=== PATIENT | female | born 1945 | race Caucasian/White ===

== ENCOUNTER 2017-01-29 10:54 | Inpatient (IN) | payer OTHER ==
[~2017-01-29] VITALS: Ht 154.9 cm; Wt 102.2 kg
[2017-01-29 11:23] LABS: BASO % 0.4 % (0.0-1.0); EOS # 0.2 10*3/uL (0.0-0.4); EOS % 2.6 % (1.0-4.0); HEMATOCRIT 37.4 % (37.0-47.0); LYMPH # 1.5 10*3/uL (1.3-4.4); LYMPH % 22.2 % (27.0-41.0); MEAN CELL VOLUME 84.8 fl (81.0-99.0); MEAN CORPUSCULAR HGB 27.2 pg (27.0-31.0); MEAN CORPUSCULAR HGB CONC 32.1 g/dl (33.0-37.0); MEAN PLATELET VOLUME 10.3 fl (9.6-12.3); MONO # 0.5 10*3/uL (0.1-1.0); MONO % 7.4 % (3.0-9.0); NEUT # 4.5 10*3/uL (2.3-7.9); NEUT % 66.8 % (47.0-73.0); PLATELET COUNT AUTOMATED 131 10*3/uL (130-400); RED BLOOD COUNT 4.41 10*6/uL (4.10-5.10); RED CELL DISTRI WIDTH 14.5 % (0-14.5); WHITE BLOOD COUNT 6.8 10*3/uL (4.8-10.8)
[2017-01-29 11:26] VITALS: BP 122/92
[2017-01-29 11:31] LABS: ACT PARTIAL THROMBO TIME 22.4 SECONDS (20.8-31.5)
[2017-01-29 11:41] LABS: ALBUMIN 3.7 gm/dl (3.1-4.5); ALKALINE PHOSPHATASE 86 U/L (45-117); BUN 17 mg/dl (7-24); CHLORIDE 103 mmol/L (98-107); CREATININE 0.81 mg/dL (0.55-1.02); MAGNESIUM 2.3 mg/dL (1.5-2.1); POTASSIUM 5.2 mmol/L (3.5-5.1); SGOT/AST 14 IU/L (3-35); SGPT/ALT 15 U/L (12-78); SODIUM 142 mmol/L (136-145); TOTAL PROTEIN 7.5 gm/dL (6.4-8.2)
[2017-01-29 11:44] LABS: TROPONIN I < 0.015 ng/ml (<0.045)
--- NOTE | 2017-01-29 11:57 | NUR ---
REQUESTS NOT TO BE ADMITTED TO ROOM 512.
--- NOTE | 2017-01-29 14:10 | NUR ---
CALLED NURSE REPORT TO NNEKA
[2017-01-29 15:08] VITALS: BP 185/43
[2017-01-29 16:00] VITALS: BP 167/70
[2017-01-29 16:15] VITALS: BP 167/70
--- NOTE | 2017-01-29 16:15 | NUR ---
A 71YO FEMALE, admitted to , under the services of DWAIN Adam DO with a diagnosis of CHF/DYSPNEA. Chief complaint is SHORTNESS OF BREATH, WORSENING OVER PAST FEW DAYS. Patient arrived via stretcher from ER. Monitor applied. Initial assessment completed. Vital signs taken and recorded. DWAIN ADAM DO notified of admission to the unit. Orders received. See assessment for past medical history, medications and allergies. Patient and/or family oriented to unit. [facility] visitation policy reviewed. Clothing/patient valuable form completed. LILIA CHANG
[2017-01-29] MEDS ORDERED: COREG25 MG PO (16:52)
[2017-01-29] MEDS ORDERED: NEURONTIN300 MG PO (16:53)
[2017-01-29] MEDS ORDERED: VITAMIN D31000 UNI1 PO (16:53)
[2017-01-29] MEDS ORDERED: ASPIRIN81 M1 PO (16:54)
[2017-01-29] MEDS ORDERED: BACTROBAN CREAM15 GM T (16:54)
[2017-01-29] MEDS ORDERED: XTAMPZA ER9 MG PO (16:55)
--- NOTE | 2017-01-29 16:55 | NUR ---
MED REC UPDATED/CORRECTED USING INFORMATION PROVIDED BY PATIENT AND DAUGHTER, WHICH COINCIDES WITH CLAIMS HISTORY, EXCEPT FOR VITAMIN D AND ASPIRIN, WHICH ARE OVER THE COUNTER BUT VERIFIED BY THE PATIENT.
--- NOTE | 2017-01-29 17:00 | NUR ---
DR. CALIXTO'S ANSWERING SERVICWE NOTIFIED OF CONSULT RE: CHF.
--- NOTE | 2017-01-29 17:03 | NUR ---
DR. CALIXTO NOTIFIED OF CONSULT RE: CHF.
--- NOTE | 2017-01-29 19:30 | NUR ---
ASSUMED CARE OF PT AT THIS TIME, NO CONCERNS OR COMPLAINTS VOICED CALL LIGHT WITH IN REACH
[2017-01-29 20:00] VITALS: BP 153/48
--- NOTE | 2017-01-29 21:45 | NUR ---
PT REFUSED OXYCONTIN AT THIS TIME, STATES THAT IT MAKES HER FEEL LOOPY, MEDICATION RETURNED TO PYXSIS
--- NOTE | 2017-01-29 23:39 | NUR ---
PT C/O INCREASED ANXIETY, PT IS TEARFUL, AND REPORTS SOB POX WNL, CALLED PLACED TO AND NEW ORDERS RECEIVED
[2017-01-30] VITALS: BP 122/61
--- NOTE | 2017-01-30 01:00 | NUR ---
PT RESTING IN BED WITH EYES CLOSED RESPS EASY AND NONLABORED WITH NO S/S OF DISTRESS, ATIVAN PRN EFFECTIVE AT THIS TIME
[2017-01-30 05:51] LABS: BASO % 0.3 % (0.0-1.0); EOS # 0.2 10*3/uL (0.0-0.4); EOS % 2.6 % (1.0-4.0); HEMATOCRIT 35.3 % (37.0-47.0); HEMOGLOBIN 11.7 g/dl (12.0-16.0); LYMPH # 1.8 10*3/uL (1.3-4.4); LYMPH % 25.8 % (27.0-41.0); MEAN CELL VOLUME 82.9 fl (81.0-99.0); MEAN CORPUSCULAR HGB 27.5 pg (27.0-31.0); MEAN CORPUSCULAR HGB CONC 33.1 g/dl (33.0-37.0); MEAN PLATELET VOLUME 10.6 fl (9.6-12.3); MONO # 0.6 10*3/uL (0.1-1.0); NEUT # 4.3 10*3/uL (2.3-7.9); PLATELET COUNT AUTOMATED 140 10*3/uL (130-400); RED BLOOD COUNT 4.26 10*6/uL (4.10-5.10); RED CELL DISTRI WIDTH 14.2 % (0-14.5); WHITE BLOOD COUNT 6.9 10*3/uL (4.8-10.8)
[2017-01-30 06:02] LABS: BUN 22 mg/dl (7-24); CHLORIDE 99 mmol/L (98-107); CHOLESTEROL 192 mg/dL (<200); CREATININE 0.99 mg/dL (0.55-1.02); FREE T4 1.33 ng/dl (0.76-1.46); MAGNESIUM 2.3 mg/dL (1.5-2.1); SODIUM 139 mmol/L (136-145); TRIGLYCERIDES 154 mg/dl (<150); VLDL CHOLESTEROL 31 mg/dL (6-40)
[2017-01-30 06:09] LABS: HDL CHOLESTEROL 42 mg/dl (40-60); LDL CHOLESTEROL 119 mg/dL (9-159); THYROID STIM HORMONE (HS) 0.958 uIU/ml (0.358-4.75)
[2017-01-30 06:13] LABS: POTASSIUM 3.9 mmol/L (3.5-5.1)
[2017-01-30 08:00] VITALS: BP 154/92
[2017-01-30 08:02] LABS: VITAMIN D, 25-HYDROXY 31.3 ng/mL (30-100)
[2017-01-30 12:00] VITALS: BP 133/54
[2017-01-30] MEDS ORDERED: PRAVACHOL80 M1 PO (13:22)
--- NOTE | 2017-01-30 13:36 | NUR ---
[facility] CALLED, MED REC UP TO DATE.
--- NOTE | 2017-01-30 13:48 | NUR ---
PATIENT ID BY NAME AND . PATIENT AGREED TO PT EVALATION. PHYSICAL THERAPY EVALUATION COMPLETED. UPON FIRST ATTEMPT AT EVALUATION, PATIENT WAS COMPLETING GROOMING INDEPENDENTLY IN HER BATHROOM WITHOUT ASSISTIVE DEVICES AND REQUESTED THIS CLINICIAN RETURN SHORTLY. UPON SECOND ARRIVAL, PATIENT WAS READY FOR EVALUATION. PATIENT IS IN NAD, PLEASANT AND TALKATIVE. BED MOBILIYT WITH MODIFIED INDPENDENCE WITH LIGHT TOUCH OF BEDRAILS GETTING IN AND OUT OF BED. SIT TO/FROM STAND WITH LIGHT UE PUSH OF BEDRAIL. GAIT WITH 4 WHEELED WALKER X 175 FT IN HALLWAY: STEADY, NO LOB, MILD SOB, SUPERVISION. GAIT WITHOUT ASSISTIVE DEVICES X 75 FT IN HALLWAY: STEADY, NO LOB, MILD/MODERATE SOB PER PATIENT REPORT. B LE STRENGTH IS GOOD AND WFL. TUG SCORE 14. 5 SECONDS WITHOUT ASSISTIVE DEVICES. PHYSICAL THERAPY EVALUATION ONLY. LOW COMPLEXITY EVALUATION PERFORMED THIS DAY WITH LIMITED NUMBER OF DIAGNOSIS, AMOUNT OF MEDICAL HISTORY TO REVIEW AND BASED ON TODAY'S VISIT, LOW RISK FOR ACUTE COMPLICATIONS.
[2017-01-30 16:00] VITALS: BP 135/48
[2017-01-30 20:00] VITALS: BP 137/55
--- NOTE | 2017-01-30 20:00 | NUR ---
SITTING AT BEDSIDE VISITING WITH FAMILY. NO DISTRESS NOTED. RESPIRATIONS EASY. CALL LIGHT WITHIN REACH. NO VOICED COMPLAINTS
--- NOTE | 2017-01-30 21:00 | NUR ---
SITTING AT BEDSIDE, NO DISTRESS NOTED. RESPIRATIONS EASY. LUNGS DIMINISHED, CLEAR. PULSE OX 93% RA. +2 BLE EDEMA NOTED, TEDS REMOVED PER PATIENT REQUEST. DECLINED 2200 OXYCODONE. CALL LIGHT WITHIN REACH. NO VOICED COMPLAINTS
--- NOTE | 2017-01-30 22:00 | NUR ---
REQUESTED AND RECEIVED ATIVAN PO PER PRN ORDER TO ASSIST WITH SLEEP. CALL LIGHT WITHIN REACH. WILL MONITOR FOR EFFECTIVENESS
[2017-01-31] VITALS: BP 109/49
--- NOTE | 2017-01-31 | NUR ---
PATIENT REMAINS AWAKE. SITTING AT BEDSIDE WITH NO DISTRESS NOTED. RESPIRATIONS EASY. VSS. CALL LIGHT WITHIN REACH. NO VOICED COMPLAINTS
--- NOTE | 2017-01-31 06:00 | NUR ---
SLEPT THROUGHOUT NIGHT WITH NO DISTRESS NOTED. RESPIRATIONS EASY. CALL LIGHT WITHIN REACH. NO VOICED COMPLAINTS THIS SHIFT
[2017-01-31 06:23] LABS: BUN 31 mg/dl (7-24); CHLORIDE 101 mmol/L (98-107); CREATININE 1.08 mg/dL (0.55-1.02); SODIUM 139 mmol/L (136-145)
--- NOTE | 2017-01-31 07:30 | NUR ---
Patient resting quietly with no c/o discomfort. Respirations easy and regular. Vital signs stable. No overt distress. ALFONSO MORENO
[2017-01-31 08:00] VITALS: BP 110/70
--- NOTE | 2017-01-31 09:00 | NUR ---
DR SCHULTZ IN TO SEE PATIENT.
--- NOTE | 2017-01-31 10:46 | NUR ---
Crew Dispatcher in to talk to patient. Patient states lives at home with and grandson. There are 0 steps in the home. Physician: jami [facility]acy: [facility] Home health services: no Patient's level of ADLs: MINIMAL ASSIST Patient has working utilities: yes DME: yessica walker Follow-up physician's appointment after d/c: Siomara nurse director Does patient want to access PORTAL?: no Discharge plan home, denies any needs. denies VNA. MABLE PLATT
[2017-01-31 12:00] VITALS: BP 96/60
[2017-01-31 16:00] VITALS: BP 106/54
[2017-01-31 20:00] VITALS: BP 108/52
--- NOTE | 2017-01-31 21:00 | NUR ---
SITTING AT BEDSIDE VISITING WITH . RESPIRATIONS EASY. LUNGS DIMINISHED, CLEAR. PULSE OX 94% RA. +2 BLE EDEMA NOTED WITH TEDS OFF AT THIS TIME. RESPIRATIONS EASY. CALL LIGHT WITHIN REACH. NO VOICED COMPLAINTS
--- NOTE | 2017-01-31 22:30 | NUR ---
REFUSED 2200 OXYCODONE AND ZOCOR
--- NOTE | 2017-01-31 23:00 | NUR ---
REQUESTED AND RECEIVED ATIVAN PO PER PRN ORDER TO ASSIST WITH SLEEP. CALL LIGHT WITHIN REACH. WILL MONITOR FOR EFFECTIVENESS
[2017-02-01] VITALS: BP 122/62
--- NOTE | 2017-02-01 00:30 | NUR ---
REMAINS AWAKE. AMBULATING IN HALLWAY WITH NO DISTRESS NOTED. RESPIRATIONS EASY
--- NOTE | 2017-02-01 02:30 | NUR ---
SLEEPING. CALL LIGHT WITHIN REACH
--- NOTE | 2017-02-01 06:00 | NUR ---
SLEPT THROUGHOUT NIGHT WITH NO DISTRESS NOTED. RESPIRATIONS EASY. CALL LIGHT WITHIN REACH. NO VOICED COMPLAINTS THIS SHIFT
[2017-02-01 06:44] LABS: CREATININE 1.26 mg/dL (0.55-1.02); POTASSIUM 4.7 mmol/L (3.5-5.1)
[2017-02-01 08:00] VITALS: BP 140/80
[2017-02-01] MEDS ORDERED: LASIX40 MG PO (11:07)
[2017-02-01] MEDS ORDERED: LOSARTAN POTASS25 M1 PO (11:09)
[2017-02-01] MEDS ORDERED: ALDACTONE25 MG PO (11:09)
[2017-02-01] MEDS ORDERED: SIMVASTATIN40 MG PO (11:11)
--- NOTE | 2017-02-01 11:21 | NUR ---
Shift chart check completed.
[2017-02-01 12:00] VITALS: BP 92/58
--- NOTE | 2017-02-01 14:55 | NUR ---
Discharge instructions reviewed with patient/family. Patient receptive and verbalizes understanding. Follow-up care arranged. Written instructions given to patient/family. INSPECTOR PROCESS REMOVED. [place] REMOVED INTACT. FLU VACCINE WAS GIVEN ON ADMISSION. PATIENT DISCHARGED BY WHEELCHAIR IN CARE OF FAMILY. MEENAKSHI DELCID
== END 2017-02-01 14:55 | disposition home or self-care (01) | DRG 292 ==
LOC: ED 10:54 → EDHOLD 13:37 → 4E 13:37
PROVIDERS: Emergency Medicine; Internal Medicine; ADMIT Internal Medicine
DX: I11.0 Hypertensive heart disease with heart failure (principal); Z68.41 Body mass index [BMI] 40.0-44.9, adult; E87.5 Hyperkalemia; F33.9 Major depressive disorder, recurrent, unspecified; D64.9 Anemia, unspecified; I50.33 Acute on chronic diastolic (congestive) heart failure; E66.01 Morbid (severe) obesity due to excess calories; E78.00 Pure hypercholesterolemia, unspecified; Z96.651 Presence of right artificial knee joint; E83.41 Hypermagnesemia; G89.29 Other chronic pain; D72.810 Lymphocytopenia; R73.9 Hyperglycemia, unspecified; M47.22 Other spondylosis with radiculopathy, cervical region; Z79.82 Long term (current) use of aspirin; Z79.899 Other long term (current) drug therapy; Z90.710 Acquired absence of both cervix and uterus; Z87.891 Personal history of nicotine dependence; Z83.3 Family history of diabetes mellitus; Z82.49 Family history of ischemic heart disease and other diseases of the circulatory system

== ENCOUNTER → 2018-04-09 | Outpatient (CLI) | payer OTHER ==
[~2018-04-09] MED LIST: ALDACTONE25 MG PO; ASPIRIN81 M1 PO; BACTROBAN CREAM15 GM T; COREG25 MG PO; LASIX40 MG PO; LOSARTAN POTASS25 M1 PO; NEURONTIN300 MG PO; PRAVACHOL80 M1 PO; SIMVASTATIN40 MG PO; VITAMIN D31000 UNI1 PO; XTAMPZA ER9 MG PO
== END | disposition home or self-care (01) ==
LOC: RESCLI 04:21
DX: I13.0 Hypertensive heart and chronic kidney disease with heart failure and stage 1 through stage 4 chronic kidney disease, or unspecified chronic kidney disease (principal); N18.3 Chronic kidney disease, stage 3 (moderate); I50.32 Chronic diastolic (congestive) heart failure; E78.2 Mixed hyperlipidemia; E55.9 Vitamin D deficiency, unspecified; F33.0 Major depressive disorder, recurrent, mild; R05 Cough; I87.2 Venous insufficiency (chronic) (peripheral); M54.5 Low back pain; G89.29 Other chronic pain; R06.02 Shortness of breath; Z53.20 Procedure and treatment not carried out because of patient's decision for unspecified reasons; Z79.82 Long term (current) use of aspirin; Z79.899 Other long term (current) drug therapy; Z88.8 Allergy status to other drugs, medicaments and biological substances

== ENCOUNTER → 2018-07-24 | Outpatient (CLI) | payer OTHER | END | disposition home or self-care (01) | LOC: RESCLI 01:43 | DX: I13.0 Hypertensive heart and chronic kidney disease with heart failure and stage 1 through stage 4 chronic kidney disease, or unspecified chronic kidney disease (principal); N18.3 Chronic kidney disease, stage 3 (moderate); I50.32 Chronic diastolic (congestive) heart failure; E78.2 Mixed hyperlipidemia; E55.9 Vitamin D deficiency, unspecified; F33.0 Major depressive disorder, recurrent, mild; I87.2 Venous insufficiency (chronic) (peripheral); M54.5 Low back pain; G89.29 Other chronic pain; R06.02 Shortness of breath; R11.0 Nausea; J30.2 Other seasonal allergic rhinitis; F17.200 Nicotine dependence, unspecified, uncomplicated; Z53.20 Procedure and treatment not carried out because of patient's decision for unspecified reasons; Z79.899 Other long term (current) drug therapy; Z90.710 Acquired absence of both cervix and uterus ==

== ENCOUNTER → 2018-10-11 | Outpatient (CLI) | payer OTHER ==
[2018-10-11 15:18] LABS: BASO % 0.5 % (0.0-1.0); EOS # 0.2 10*3/uL (0.0-0.4); EOS % 3.8 % (1.0-4.0); HEMATOCRIT 33.9 % (37.0-47.0); HEMOGLOBIN 11.3 g/dl (12.0-16.0); LYMPH # 1.5 10*3/uL (1.3-4.4); LYMPH % 24.8 % (27.0-41.0); MEAN CELL VOLUME 86.5 fl (81.0-99.0); MEAN CORPUSCULAR HGB 28.8 pg (27.0-31.0); MEAN CORPUSCULAR HGB CONC 33.3 g/dl (33.0-37.0); MEAN PLATELET VOLUME 10.8 fl (9.6-12.3); MONO # 0.4 10*3/uL (0.1-1.0); NEUT # 3.9 10*3/uL (2.3-7.9); NEUT % 63.6 % (47.0-73.0); PLATELET COUNT AUTOMATED 136 10*3/uL (130-400); RED BLOOD COUNT 3.92 10*6/uL (4.10-5.10); RED CELL DISTRI WIDTH 14.1 % (0-14.5); WHITE BLOOD COUNT 6.1 10*3/uL (4.8-10.8)
[2018-10-11 15:26] LABS: CREATININE 1.19 mg/dL (0.55-1.02); POTASSIUM 4.6 mmol/L (3.5-5.1)
== END | disposition home or self-care (01) ==
LOC: RESCLI 01:22
PROVIDERS: Internal Medicine
DX: I13.0 Hypertensive heart and chronic kidney disease with heart failure and stage 1 through stage 4 chronic kidney disease, or unspecified chronic kidney disease (principal); I50.32 Chronic diastolic (congestive) heart failure; N18.3 Chronic kidney disease, stage 3 (moderate); M54.5 Low back pain; E55.9 Vitamin D deficiency, unspecified; F33.0 Major depressive disorder, recurrent, mild; R06.02 Shortness of breath; J30.2 Other seasonal allergic rhinitis; R11.0 Nausea; E78.2 Mixed hyperlipidemia; M19.90 Unspecified osteoarthritis, unspecified site; Z79.899 Other long term (current) drug therapy; Z88.8 Allergy status to other drugs, medicaments and biological substances

== ENCOUNTER → 2019-01-17 | Outpatient (CLI) | payer OTHER | END | disposition home or self-care (01) | LOC: RESCLI 02:39 | DX: Z12.11 Encounter for screening for malignant neoplasm of colon (principal); I13.0 Hypertensive heart and chronic kidney disease with heart failure and stage 1 through stage 4 chronic kidney disease, or unspecified chronic kidney disease; I50.32 Chronic diastolic (congestive) heart failure; N18.3 Chronic kidney disease, stage 3 (moderate); M54.5 Low back pain; E55.9 Vitamin D deficiency, unspecified; F33.0 Major depressive disorder, recurrent, mild; R06.02 Shortness of breath; J30.2 Other seasonal allergic rhinitis; R11.0 Nausea; E78.2 Mixed hyperlipidemia; M19.90 Unspecified osteoarthritis, unspecified site; B35.9 Dermatophytosis, unspecified; E66.01 Morbid (severe) obesity due to excess calories; R26.9 Unspecified abnormalities of gait and mobility; E78.5 Hyperlipidemia, unspecified; Z79.899 Other long term (current) drug therapy; Z79.82 Long term (current) use of aspirin; Z88.8 Allergy status to other drugs, medicaments and biological substances; Z90.710 Acquired absence of both cervix and uterus ==

== ENCOUNTER → 2019-02-04 | Outpatient (CLI) | payer OTHER | END | disposition home or self-care (01) | LOC: RESCLI 01:49 | DX: R26.2 Difficulty in walking, not elsewhere classified (principal); I13.0 Hypertensive heart and chronic kidney disease with heart failure and stage 1 through stage 4 chronic kidney disease, or unspecified chronic kidney disease; I50.32 Chronic diastolic (congestive) heart failure; N18.3 Chronic kidney disease, stage 3 (moderate); E55.9 Vitamin D deficiency, unspecified; F33.0 Major depressive disorder, recurrent, mild; R11.0 Nausea; E78.2 Mixed hyperlipidemia; J45.909 Unspecified asthma, uncomplicated; M19.90 Unspecified osteoarthritis, unspecified site; E78.5 Hyperlipidemia, unspecified; Z72.820 Sleep deprivation; Z79.899 Other long term (current) drug therapy ==

== ENCOUNTER → 2019-02-11 | Outpatient (CLI) | payer OTHER ==
--- NOTE | ~2019-02-11 | PF ---
[place], [place] PULMONARY FUNCTION TEST [facility]: [id number] UNIT #: [id number] ROOM: DOCTOR: KAREN LUNDBERG MD,COURTNEY BIRTHDATE: [birth year] DOS: 02/11/2019 PULMONARY FUNCTION TESTS ORDERED BY: Test was ordered by ____. HISTORY: The patient is a 73-year-old female, height of 62 inches, weight of 212 pounds, BMI 38.8. The patient reported symptoms of shortness of breath with exertion. Tobacco use reported 1 pack of cigarettes per day for 42 years that has been discontinued 14 years ago. SPIROMETRY: The FVC 1.57 liters, 62% predicted value, FEV1 1.20 liters, 61% predicted value with ratio of FEV1/FVC recorded as 78%. Partial improvement was noted in FEV1 or FVC, but did not meet the ATS criteria of improvement post-bronchodilators. Flow volume loop was noted. Finding suggestive of obstructive lung disease. LUNG VOLUME: Thoracic gas volume recorded 108%, residual volume 131%, total lung capacity of 96%. The patient's airway resistance and passive conductance were noted as normal. The patient's lung diffusion recorded 62%, mildly decreased without correction of carbon monoxide hemoglobin values. FINAL IMPRESSION: Current test was suggestive of possible consideration of mild obstructive lung disease for this patient. Clinical correlation would be advised with current pulmonary function tests. COURTNEY JONES MD CM:PFREPORT:PULMONARY FUNCTION TEST [id number] COURTNEY LUNDBERG MD
== END | disposition home or self-care (01) ==
LOC: CP 12:42
DX: J45.909 Unspecified asthma, uncomplicated (principal)

== ENCOUNTER → 2019-02-20 | Outpatient (CLI) | payer OTHER | END | disposition home or self-care (01) | LOC: RESCLI 01:55 | DX: R26.2 Difficulty in walking, not elsewhere classified (principal); I11.0 Hypertensive heart disease with heart failure; I50.32 Chronic diastolic (congestive) heart failure; E55.9 Vitamin D deficiency, unspecified; F33.0 Major depressive disorder, recurrent, mild; R11.0 Nausea; E78.2 Mixed hyperlipidemia; M19.90 Unspecified osteoarthritis, unspecified site; J41.0 Simple chronic bronchitis; G56.03 Carpal tunnel syndrome, bilateral upper limbs; Z72.820 Sleep deprivation; Z79.899 Other long term (current) drug therapy ==

== ENCOUNTER → 2019-02-25 | Outpatient (CLI) | payer OTHER | END | disposition home or self-care (01) | LOC: CARD 13:59 | DX: I07.1 Rheumatic tricuspid insufficiency (principal); I27.20 Pulmonary hypertension, unspecified ==

== ENCOUNTER → 2019-05-20 | Outpatient (CLI) | payer OTHER | END | disposition home or self-care (01) | LOC: RESCLI 00:48 | DX: Z13.220 Encounter for screening for lipoid disorders (principal); Z13.31 Encounter for screening for depression; I13.0 Hypertensive heart and chronic kidney disease with heart failure and stage 1 through stage 4 chronic kidney disease, or unspecified chronic kidney disease; N18.3 Chronic kidney disease, stage 3 (moderate); I50.32 Chronic diastolic (congestive) heart failure; G47.33 Obstructive sleep apnea (adult) (pediatric); E78.2 Mixed hyperlipidemia; J41.0 Simple chronic bronchitis; E55.9 Vitamin D deficiency, unspecified; M19.90 Unspecified osteoarthritis, unspecified site; G56.03 Carpal tunnel syndrome, bilateral upper limbs; M54.5 Low back pain; R73.9 Hyperglycemia, unspecified; Z90.710 Acquired absence of both cervix and uterus; Z90.89 Acquired absence of other organs ==

== ENCOUNTER → 2019-10-06 | Outpatient (CLI) | payer OTHER | LOC: RESCLI 01:43 | DX: I13.0 Hypertensive heart and chronic kidney disease with heart failure and stage 1 through stage 4 chronic kidney disease, or unspecified chronic kidney disease (principal); N18.3 Chronic kidney disease, stage 3 (moderate); I50.32 Chronic diastolic (congestive) heart failure; J41.0 Simple chronic bronchitis; G56.03 Carpal tunnel syndrome, bilateral upper limbs; E55.9 Vitamin D deficiency, unspecified; E78.2 Mixed hyperlipidemia; M54.5 Low back pain; M19.90 Unspecified osteoarthritis, unspecified site; R06.01 Orthopnea; F33.41 Major depressive disorder, recurrent, in partial remission; L28.2 Other prurigo ==

== ENCOUNTER → 2019-12-05 | Outpatient (CLI) | payer OTHER ==
[2019-12-05 14:10] LABS: BASO % 0.3 % (0.0-1.0); EOS # 0.2 10*3/uL (0.0-0.4); EOS % 2.8 % (1.0-4.0); HEMATOCRIT 37.1 % (37.0-47.0); LYMPH # 1.2 10*3/uL (1.3-4.4); LYMPH % 19.1 % (27.0-41.0); MEAN CELL VOLUME 84.1 fl (81.0-99.0); MEAN CORPUSCULAR HGB 27.2 pg (27.0-31.0); MEAN CORPUSCULAR HGB CONC 32.3 g/dl (33.0-37.0); MEAN PLATELET VOLUME 10.6 fl (9.6-12.3); MONO # 0.4 10*3/uL (0.1-1.0); MONO % 6.8 % (3.0-9.0); NEUT # 4.5 10*3/uL (2.3-7.9); NEUT % 70.5 % (47.0-73.0); PLATELET COUNT AUTOMATED 130 10*3/uL (130-400); RED BLOOD COUNT 4.41 10*6/uL (4.10-5.10); RED CELL DISTRI WIDTH 13.4 % (0-14.5); WHITE BLOOD COUNT 6.3 10*3/uL (4.8-10.8)
[2019-12-05 14:36] LABS: BUN 15 mg/dl (7-24); CHLORIDE 107 mmol/L (98-107); CHOLESTEROL 140 mg/dL (<200); CREATININE 1.06 mg/dL (0.55-1.02); HDL CHOLESTEROL 45 mg/dl (40-60); LDL CHOLESTEROL 62 mg/dL (9-159); POTASSIUM 4.2 mmol/L (3.5-5.1); SODIUM 139 mmol/L (136-145); TRIGLYCERIDES 163 mg/dl (<150); VLDL CHOLESTEROL 33 mg/dL (6-40)
== END | disposition home or self-care (01) ==
LOC: RESCLI 01:52
PROVIDERS: Internal Medicine
DX: L28.2 Other prurigo (principal); J41.0 Simple chronic bronchitis; E55.9 Vitamin D deficiency, unspecified; F33.41 Major depressive disorder, recurrent, in partial remission; M19.90 Unspecified osteoarthritis, unspecified site; M54.5 Low back pain; G56.03 Carpal tunnel syndrome, bilateral upper limbs; I13.0 Hypertensive heart and chronic kidney disease with heart failure and stage 1 through stage 4 chronic kidney disease, or unspecified chronic kidney disease; N18.3 Chronic kidney disease, stage 3 (moderate); I50.32 Chronic diastolic (congestive) heart failure; E78.2 Mixed hyperlipidemia; Z79.899 Other long term (current) drug therapy; Z98.890 Other specified postprocedural states; Z90.710 Acquired absence of both cervix and uterus; Z87.891 Personal history of nicotine dependence

== ENCOUNTER → 2019-12-18 | Outpatient (CLI) | payer OTHER ==
[2019-12-18 12:03] LABS: BILIRUBIN NEGATIVE (NEGATIVE); BLOOD NEGATIVE (NEGATIVE); CLARITY CLEAR (CLEAR); COLOR YELLOW (YELLOW); GLUCOSE NEGATIVE (NEGATIVE); KETONE NEGATIVE (NEGATIVE); LEUKO ESTERASE NEGATIVE (NEGATIVE); NITRITE NEGATIVE (NEGATIVE); PH 6.5 (5.0-9.0); SPECIFIC GRAVITY 1.015 (1.005-1.030); UROBILINOGEN 0.2 E.U./dl (0.2-1.0)
[2019-12-18 12:05] LABS: BACTERIA TRACE; WBC 0-2 wbc/hpf (0-5)
== END | disposition home or self-care (01) ==
LOC: LAB 12-17 15:25
PROVIDERS: Internal Medicine
DX: R30.0 Dysuria (principal)

== ENCOUNTER → 2020-01-09 | Outpatient (CLI) | payer OTHER | END | disposition home or self-care (01) | LOC: RESCLI 00:46 | PROVIDERS: ATTEND Internal Medicine | DX: J41.0 Simple chronic bronchitis (principal); M47.816 Spondylosis without myelopathy or radiculopathy, lumbar region; E55.9 Vitamin D deficiency, unspecified; M19.90 Unspecified osteoarthritis, unspecified site; M54.5 Low back pain; I50.32 Chronic diastolic (congestive) heart failure; E78.2 Mixed hyperlipidemia; L28.2 Other prurigo; G56.03 Carpal tunnel syndrome, bilateral upper limbs; F33.41 Major depressive disorder, recurrent, in partial remission; I12.9 Hypertensive chronic kidney disease with stage 1 through stage 4 chronic kidney disease, or unspecified chronic kidney disease; N18.3 Chronic kidney disease, stage 3 (moderate); Z79.899 Other long term (current) drug therapy; Z98.890 Other specified postprocedural states; Z90.710 Acquired absence of both cervix and uterus ==

== ENCOUNTER → 2020-10-15 | Outpatient (CLI) | payer OTHER | END | disposition home or self-care (01) | LOC: RESCLI 01:03 | PROVIDERS: ATTEND Internal Medicine | DX: L28.2 Other prurigo (principal); J41.0 Simple chronic bronchitis; E55.9 Vitamin D deficiency, unspecified; I50.32 Chronic diastolic (congestive) heart failure; G56.03 Carpal tunnel syndrome, bilateral upper limbs; F33.41 Major depressive disorder, recurrent, in partial remission; I10 Essential (primary) hypertension; K21.9 Gastro-esophageal reflux disease without esophagitis; M19.90 Unspecified osteoarthritis, unspecified site; E78.5 Hyperlipidemia, unspecified; Z79.899 Other long term (current) drug therapy; Z90.710 Acquired absence of both cervix and uterus; Z98.890 Other specified postprocedural states ==

== ENCOUNTER → 2020-10-21 | Outpatient (CLI) | payer OTHER, MEDICARE ==
[2020-10-21 10:25] LABS: BASO % 0.4 % (0.0-1.0); EOS # 0.2 10*3/uL (0.0-0.4); HEMATOCRIT 35.6 % (37.0-47.0); LYMPH # 1.5 10*3/uL (1.3-4.4); LYMPH % 26.2 % (27.0-41.0); MEAN CELL VOLUME 85.4 fl (81.0-99.0); MEAN CORPUSCULAR HGB 27.3 pg (27.0-31.0); MEAN PLATELET VOLUME 9.9 fl (9.6-12.3); MONO # 0.4 10*3/uL (0.1-1.0); MONO % 6.7 % (3.0-9.0); NEUT # 3.6 10*3/uL (2.3-7.9); NEUT % 63.3 % (47.0-73.0); PLATELET COUNT AUTOMATED 118 10*3/uL (130-400); RED BLOOD COUNT 4.17 10*6/uL (4.10-5.10); RED CELL DISTRI WIDTH 13.7 % (0-14.5); WHITE BLOOD COUNT 5.7 10*3/uL (4.8-10.8)
[2020-10-21 10:43] LABS: ALBUMIN 3.5 gm/dl (3.1-4.5); CREATININE 1.11 mg/dL (0.55-1.02); POTASSIUM 4.5 mmol/L (3.5-5.1); TOTAL PROTEIN 7.3 gm/dL (6.4-8.2)
[2020-10-21 11:14] LABS: VITAMIN D, 25-HYDROXY 35.9 ng/mL (30-100)
== END | disposition home or self-care (01) ==
LOC: LAB 10:04
PROVIDERS: Internal Medicine; ATTEND Internal Medicine
DX: I50.32 Chronic diastolic (congestive) heart failure (principal); E55.9 Vitamin D deficiency, unspecified

== ENCOUNTER → 2021-03-02 | Outpatient (CLI) | payer OTHER | END | disposition home or self-care (01) | LOC: RESCLI 00:49 | PROVIDERS: ATTEND Internal Medicine Nephrology | DX: Z23 Encounter for immunization (principal); I13.0 Hypertensive heart and chronic kidney disease with heart failure and stage 1 through stage 4 chronic kidney disease, or unspecified chronic kidney disease; I50.32 Chronic diastolic (congestive) heart failure; N18.9 Chronic kidney disease, unspecified; J45.909 Unspecified asthma, uncomplicated; E78.2 Mixed hyperlipidemia; K21.9 Gastro-esophageal reflux disease without esophagitis; M19.90 Unspecified osteoarthritis, unspecified site; G47.00 Insomnia, unspecified; E55.9 Vitamin D deficiency, unspecified; G89.29 Other chronic pain; F41.9 Anxiety disorder, unspecified; Z79.899 Other long term (current) drug therapy; Z90.710 Acquired absence of both cervix and uterus ==

== ENCOUNTER → 2021-03-23 | Outpatient (CLI) | payer OTHER | END | disposition home or self-care (01) | LOC: RESCLI 00:46 | PROVIDERS: ATTEND Internal Medicine Nephrology | DX: I13.0 Hypertensive heart and chronic kidney disease with heart failure and stage 1 through stage 4 chronic kidney disease, or unspecified chronic kidney disease (principal); I50.32 Chronic diastolic (congestive) heart failure; J45.909 Unspecified asthma, uncomplicated; E78.2 Mixed hyperlipidemia; M19.90 Unspecified osteoarthritis, unspecified site; K21.9 Gastro-esophageal reflux disease without esophagitis; G47.00 Insomnia, unspecified; Z23 Encounter for immunization; E55.9 Vitamin D deficiency, unspecified; G89.29 Other chronic pain; F41.9 Anxiety disorder, unspecified; H81.10 Benign paroxysmal vertigo, unspecified ear; R11.0 Nausea; Z79.899 Other long term (current) drug therapy ==

== ENCOUNTER → 2021-03-24 | Outpatient (CLI) | payer OTHER ==
[2021-03-24 15:34] LABS: BILIRUBIN Negative (Negative); BLOOD Negative (Negative); CLARITY Clear (Clear); COLOR Yellow (Yellow); GLUCOSE Negative (Negative); KETONE Negative (Negative); LEUKO ESTERASE Negative (Negative); NITRITE Negative (Negative)
[2021-03-24 16:18] LABS: BACTERIA 1+; RBC 0-2 rbc/hpf (0-2); WBC 0-2 wbc/hpf (0-5)
== END | disposition home or self-care (01) ==
LOC: LAB 14:52
PROVIDERS: Hospitalist; ATTEND Internal Medicine
DX: R11.0 Nausea (principal); Z79.899 Other long term (current) drug therapy

== ENCOUNTER → 2021-06-22 | Outpatient (CLI) | payer OTHER | END | disposition home or self-care (01) | LOC: RESCLI 00:33 | PROVIDERS: ATTEND Internal Medicine Nephrology | DX: I13.0 Hypertensive heart and chronic kidney disease with heart failure and stage 1 through stage 4 chronic kidney disease, or unspecified chronic kidney disease (principal); I50.32 Chronic diastolic (congestive) heart failure; E78.2 Mixed hyperlipidemia; M19.90 Unspecified osteoarthritis, unspecified site; K21.9 Gastro-esophageal reflux disease without esophagitis; J45.909 Unspecified asthma, uncomplicated; E55.9 Vitamin D deficiency, unspecified; G89.29 Other chronic pain; F41.9 Anxiety disorder, unspecified; N18.30 Chronic kidney disease, stage 3 unspecified; R11.0 Nausea; R26.2 Difficulty in walking, not elsewhere classified; N17.9 Acute kidney failure, unspecified; Z79.899 Other long term (current) drug therapy; Z90.710 Acquired absence of both cervix and uterus; Z98.890 Other specified postprocedural states ==

== ENCOUNTER → 2021-06-29 | Outpatient (CLI) | payer OTHER ==
[2021-06-29 17:17] LABS: CHLORIDE 111 mmol/L (98-107); POTASSIUM 4.8 mmol/L (3.5-5.1)
[2021-06-29 17:25] LABS: BUN 11 mg/dl (7-24); SODIUM 139 mmol/L (136-145)
== END ==
LOC: LAB 15:52 → US 16:00
PROVIDERS: ATTEND Hospitalist
DX: N28.1 Cyst of kidney, acquired (principal); N17.9 Acute kidney failure, unspecified

== ENCOUNTER → 2021-06-30 | Outpatient (CLI) | payer OTHER ==
[2021-06-30 16:34] LABS: BILIRUBIN Negative (Negative); BLOOD Negative (Negative); CLARITY Clear (Clear); COLOR Yellow (Yellow); GLUCOSE Negative (Negative); KETONE Negative (Negative); LEUKO ESTERASE Negative (Negative); NITRITE Negative (Negative); PH 5.5 (4.5-8.0); SPECIFIC GRAVITY 1.015 (1.001-1.030)
[2021-06-30 17:00] LABS: BACTERIA TRACE; WBC 0-2 wbc/hpf (0-5)
[2021-07-01 11:07] LABS: CREATININE,URINE 110.1 mg/dL (Not Estab.)
== END ==
LOC: LAB 15:07
PROVIDERS: ATTEND Hospitalist
DX: N17.9 Acute kidney failure, unspecified (principal)

== ENCOUNTER → 2021-07-20 | Outpatient (CLI) | payer OTHER | END | disposition home or self-care (01) | LOC: RESCLI 00:28 | PROVIDERS: ATTEND Internal Medicine Nephrology | DX: I13.0 Hypertensive heart and chronic kidney disease with heart failure and stage 1 through stage 4 chronic kidney disease, or unspecified chronic kidney disease (principal); I50.32 Chronic diastolic (congestive) heart failure; N18.30 Chronic kidney disease, stage 3 unspecified; J45.909 Unspecified asthma, uncomplicated; E78.2 Mixed hyperlipidemia; M19.90 Unspecified osteoarthritis, unspecified site; K21.9 Gastro-esophageal reflux disease without esophagitis; G47.33 Obstructive sleep apnea (adult) (pediatric); E55.9 Vitamin D deficiency, unspecified; G89.29 Other chronic pain; F41.9 Anxiety disorder, unspecified; R11.0 Nausea; R26.2 Difficulty in walking, not elsewhere classified; N17.9 Acute kidney failure, unspecified; Z90.49 Acquired absence of other specified parts of digestive tract; Z79.899 Other long term (current) drug therapy ==

== ENCOUNTER → 2021-08-04 | Outpatient (CLI) | payer OTHER ==
[2021-08-04 12:28] LABS: BASO % 0.3 % (0.0-1.0); EOS # 0.1 10*3/uL (0.0-0.4); EOS % 1.3 % (1.0-4.0); HEMATOCRIT 35.2 % (37.0-47.0); LYMPH # 1.1 10*3/uL (1.3-4.4); LYMPH % 17.6 % (27.0-41.0); MEAN CELL VOLUME 81.1 fl (81.0-99.0); MEAN CORPUSCULAR HGB 27.9 pg (27.0-31.0); MEAN CORPUSCULAR HGB CONC 34.4 g/dl (33.0-37.0); MEAN PLATELET VOLUME 10.1 fl (9.6-12.3); MONO # 0.3 10*3/uL (0.1-1.0); MONO % 5.1 % (3.0-9.0); NEUT # 4.7 10*3/uL (2.3-7.9); NEUT % 75.2 % (47.0-73.0); PLATELET COUNT AUTOMATED 143 10*3/uL (130-400); RED BLOOD COUNT 4.34 10*6/uL (4.10-5.10); RED CELL DISTRI WIDTH 13.3 % (0-14.5); WHITE BLOOD COUNT 6.3 10*3/uL (4.8-10.8)
[2021-08-04 13:24] LABS: BUN 18 mg/dl (7-24); CHLORIDE 106 mmol/L (98-107); CREATININE 1.01 mg/dL (0.55-1.02); POTASSIUM 4.4 mmol/L (3.5-5.1); SODIUM 139 mmol/L (136-145)
== END ==
LOC: RESCLI 07:13
PROVIDERS: Student in an Organized Health Care Education/Training Program; ATTEND Internal Medicine
DX: J43.9 Emphysema, unspecified (principal); J34.89 Other specified disorders of nose and nasal sinuses; E78.5 Hyperlipidemia, unspecified; I13.0 Hypertensive heart and chronic kidney disease with heart failure and stage 1 through stage 4 chronic kidney disease, or unspecified chronic kidney disease; N18.30 Chronic kidney disease, stage 3 unspecified; J40 Bronchitis, not specified as acute or chronic

== ENCOUNTER → 2021-09-21 | Outpatient (CLI) | payer OTHER | END | disposition home or self-care (01) | LOC: RESCLI 00:36 | PROVIDERS: ATTEND Internal Medicine Nephrology | DX: R06.01 Orthopnea (principal); I13.0 Hypertensive heart and chronic kidney disease with heart failure and stage 1 through stage 4 chronic kidney disease, or unspecified chronic kidney disease; I50.32 Chronic diastolic (congestive) heart failure; N18.30 Chronic kidney disease, stage 3 unspecified; E78.2 Mixed hyperlipidemia; M19.90 Unspecified osteoarthritis, unspecified site; K21.9 Gastro-esophageal reflux disease without esophagitis; G47.00 Insomnia, unspecified; E55.9 Vitamin D deficiency, unspecified; G89.29 Other chronic pain; F41.9 Anxiety disorder, unspecified; R26.2 Difficulty in walking, not elsewhere classified; Z90.710 Acquired absence of both cervix and uterus; Z79.899 Other long term (current) drug therapy ==

== ENCOUNTER → 2021-10-27 | Outpatient (CLI) | payer OTHER | END | disposition home or self-care (01) | LOC: CARD 08:56 | PROVIDERS: ATTEND Student in an Organized Health Care Education/Training Program | DX: R94.31 Abnormal electrocardiogram [ECG] [EKG] (principal); I49.1 Atrial premature depolarization; I08.1 Rheumatic disorders of both mitral and tricuspid valves ==

== ENCOUNTER → 2021-11-02 | Outpatient (CLI) | payer OTHER | END | disposition home or self-care (01) | LOC: RESCLI 02:29 | PROVIDERS: ATTEND Internal Medicine Nephrology | DX: I13.0 Hypertensive heart and chronic kidney disease with heart failure and stage 1 through stage 4 chronic kidney disease, or unspecified chronic kidney disease (principal); I50.32 Chronic diastolic (congestive) heart failure; J45.909 Unspecified asthma, uncomplicated; E78.2 Mixed hyperlipidemia; M19.90 Unspecified osteoarthritis, unspecified site; K21.9 Gastro-esophageal reflux disease without esophagitis; G47.00 Insomnia, unspecified; E55.9 Vitamin D deficiency, unspecified; G89.29 Other chronic pain; F41.9 Anxiety disorder, unspecified; N18.30 Chronic kidney disease, stage 3 unspecified; R26.2 Difficulty in walking, not elsewhere classified; R06.00 Dyspnea, unspecified; E78.5 Hyperlipidemia, unspecified; I65.23 Occlusion and stenosis of bilateral carotid arteries; M47.812 Spondylosis without myelopathy or radiculopathy, cervical region; M51.36 Other intervertebral disc degeneration, lumbar region; Z90.710 Acquired absence of both cervix and uterus; Z79.899 Other long term (current) drug therapy; Z79.02 Long term (current) use of antithrombotics/antiplatelets; Z79.2 Long term (current) use of antibiotics; Z79.83 Long term (current) use of bisphosphonates ==

== ENCOUNTER → 2022-01-02 | Outpatient (CLI) | payer OTHER | END | disposition home or self-care (01) | LOC: RESCLI 00:06 | PROVIDERS: ATTEND Internal Medicine | DX: I11.0 Hypertensive heart disease with heart failure (principal); I50.32 Chronic diastolic (congestive) heart failure; E55.9 Vitamin D deficiency, unspecified; G89.29 Other chronic pain; M19.90 Unspecified osteoarthritis, unspecified site; R26.2 Difficulty in walking, not elsewhere classified; G47.00 Insomnia, unspecified; I65.23 Occlusion and stenosis of bilateral carotid arteries; M15.0 Primary generalized (osteo)arthritis; J45.909 Unspecified asthma, uncomplicated; E78.2 Mixed hyperlipidemia; F41.8 Other specified anxiety disorders; Z90.710 Acquired absence of both cervix and uterus; Z79.899 Other long term (current) drug therapy ==

== ENCOUNTER → 2022-01-26 | Outpatient (CLI) | payer OTHER ==
[2022-01-26 16:28] LABS: BASO % 0.6 % (0.0-1.0); EOS # 0.1 10*3/uL (0.0-0.4); EOS % 2.3 % (1.0-4.0); HEMATOCRIT 33.9 % (37.0-47.0); LYMPH # 1.5 10*3/uL (1.3-4.4); LYMPH % 29.5 % (27.0-41.0); MEAN CELL VOLUME 86.7 fl (81.0-99.0); MEAN CORPUSCULAR HGB 28.9 pg (27.0-31.0); MEAN CORPUSCULAR HGB CONC 33.3 g/dl (33.0-37.0); MEAN PLATELET VOLUME 10.7 fl (9.6-12.3); MONO # 0.4 10*3/uL (0.1-1.0); MONO % 7.1 % (3.0-9.0); NEUT # 3.2 10*3/uL (2.3-7.9); NEUT % 60.3 % (47.0-73.0); PLATELET COUNT AUTOMATED 118 10*3/uL (130-400); RED BLOOD COUNT 3.91 10*6/uL (4.10-5.10); RED CELL DISTRI WIDTH 13.1 % (0-14.5); WHITE BLOOD COUNT 5.2 10*3/uL (4.8-10.8)
[2022-01-26 17:19] LABS: VITAMIN D, 25-HYDROXY 44.7 ng/mL (30-100)
== END | disposition home or self-care (01) ==
LOC: LAB 15:53
PROVIDERS: Student in an Organized Health Care Education/Training Program; ATTEND Internal Medicine
DX: I11.0 Hypertensive heart disease with heart failure (principal); I50.32 Chronic diastolic (congestive) heart failure; E78.2 Mixed hyperlipidemia; Z79.899 Other long term (current) drug therapy; E55.9 Vitamin D deficiency, unspecified; R26.2 Difficulty in walking, not elsewhere classified

== ENCOUNTER → 2022-01-30 | Outpatient (CLI) | payer OTHER | END | disposition home or self-care (01) | LOC: RESCLI 00:40 | PROVIDERS: ATTEND Internal Medicine | DX: I13.0 Hypertensive heart and chronic kidney disease with heart failure and stage 1 through stage 4 chronic kidney disease, or unspecified chronic kidney disease (principal); N18.30 Chronic kidney disease, stage 3 unspecified; I50.32 Chronic diastolic (congestive) heart failure; E55.9 Vitamin D deficiency, unspecified; E78.2 Mixed hyperlipidemia; J45.909 Unspecified asthma, uncomplicated; F41.9 Anxiety disorder, unspecified; M19.90 Unspecified osteoarthritis, unspecified site; Z13.820 Encounter for screening for osteoporosis; R26.2 Difficulty in walking, not elsewhere classified; Z90.710 Acquired absence of both cervix and uterus; Z98.890 Other specified postprocedural states; Z79.899 Other long term (current) drug therapy ==

== ENCOUNTER → 2022-03-20 | Outpatient (CLI) | payer OTHER ==
[~2022-03-20] MED LIST changes: +HYDROCODONE-AC1 EAC1 PO; +MELOXICAM15 MG PO; +ONDANSETRON4 MG SL; +PROVENTIL HFA6.7 GM INH; +TRAZODONE50 MG PO; +VANCOMYCIN HCL125 MG PO; +ZOLOFT100 MG PO
== END | disposition home or self-care (01) ==
LOC: RESCLI 14:25
PROVIDERS: ATTEND Internal Medicine
DX: I11.0 Hypertensive heart disease with heart failure (principal); I50.30 Unspecified diastolic (congestive) heart failure; I65.23 Occlusion and stenosis of bilateral carotid arteries; Z90.710 Acquired absence of both cervix and uterus; Z98.890 Other specified postprocedural states; Z79.899 Other long term (current) drug therapy

== ENCOUNTER → 2022-04-17 | Outpatient (CLI) | payer OTHER | END | disposition home or self-care (01) | LOC: RESCLI 01:54 | PROVIDERS: ATTEND Internal Medicine | DX: I13.0 Hypertensive heart and chronic kidney disease with heart failure and stage 1 through stage 4 chronic kidney disease, or unspecified chronic kidney disease (principal); N18.9 Chronic kidney disease, unspecified; I50.32 Chronic diastolic (congestive) heart failure; E78.2 Mixed hyperlipidemia; F41.8 Other specified anxiety disorders; J45.909 Unspecified asthma, uncomplicated; M19.90 Unspecified osteoarthritis, unspecified site; E55.9 Vitamin D deficiency, unspecified; H81.10 Benign paroxysmal vertigo, unspecified ear; Z90.710 Acquired absence of both cervix and uterus; Z98.890 Other specified postprocedural states; Z79.899 Other long term (current) drug therapy ==

== ENCOUNTER → 2022-04-24 | Outpatient (CLI) | payer OTHER ==
[2022-04-24 09:56] LABS: CREATININE 1.23 mg/dL (0.55-1.02); POTASSIUM 4.4 mmol/L (3.4-5.1)
== END | disposition home or self-care (01) ==
LOC: LAB 08:46
PROVIDERS: Student in an Organized Health Care Education/Training Program; ATTEND Internal Medicine
DX: N18.9 Chronic kidney disease, unspecified (principal)

== ENCOUNTER → 2022-04-25 | Outpatient (CLI) | payer OTHER | END | disposition home or self-care (01) | LOC: CT 04-03 08:00 | PROVIDERS: ATTEND Internal Medicine | DX: I65.23 Occlusion and stenosis of bilateral carotid arteries (principal); M50.30 Other cervical disc degeneration, unspecified cervical region; M48.02 Spinal stenosis, cervical region ==

== ENCOUNTER → 2022-07-17 | Outpatient (CLI) | payer MEDICARE | END | disposition home or self-care (01) | LOC: RESCLI 01:33 | PROVIDERS: ATTEND Internal Medicine | DX: I11.0 Hypertensive heart disease with heart failure (principal); I50.32 Chronic diastolic (congestive) heart failure; E78.5 Hyperlipidemia, unspecified; Z98.890 Other specified postprocedural states; Z90.710 Acquired absence of both cervix and uterus; Z79.899 Other long term (current) drug therapy ==

== ENCOUNTER → 2022-10-16 | Outpatient (CLI) | payer MEDICARE | END | disposition home or self-care (01) | LOC: RESCLI 02:27 | PROVIDERS: ATTEND Internal Medicine | DX: I13.0 Hypertensive heart and chronic kidney disease with heart failure and stage 1 through stage 4 chronic kidney disease, or unspecified chronic kidney disease (principal); I50.32 Chronic diastolic (congestive) heart failure; N18.30 Chronic kidney disease, stage 3 unspecified; R19.7 Diarrhea, unspecified; M79.89 Other specified soft tissue disorders; F41.8 Other specified anxiety disorders; G62.9 Polyneuropathy, unspecified; E78.2 Mixed hyperlipidemia; E55.9 Vitamin D deficiency, unspecified; J45.909 Unspecified asthma, uncomplicated; M19.90 Unspecified osteoarthritis, unspecified site; H81.10 Benign paroxysmal vertigo, unspecified ear; Z90.710 Acquired absence of both cervix and uterus; Z79.899 Other long term (current) drug therapy; Z98.890 Other specified postprocedural states ==

== ENCOUNTER → 2022-12-26 | Outpatient (CLI) | payer MEDICARE | END | disposition home or self-care (01) | LOC: RESCLI 09:18 | PROVIDERS: ATTEND Student in an Organized Health Care Education/Training Program | DX: E78.2 Mixed hyperlipidemia (principal); I10 Essential (primary) hypertension; Z98.890 Other specified postprocedural states; Z79.899 Other long term (current) drug therapy ==

== ENCOUNTER → 2023-08-28 | Outpatient (CLI) | payer MEDICARE ==
[~2023-08-28] MED LIST changes: +VIBRA-TAB100 MG PO
== END | disposition home or self-care (01) ==
LOC: RESCLI 11:24
PROVIDERS: ATTEND Family Medicine
DX: L03.90 Cellulitis, unspecified (principal); F41.8 Other specified anxiety disorders; G62.9 Polyneuropathy, unspecified; E78.5 Hyperlipidemia, unspecified; I12.9 Hypertensive chronic kidney disease with stage 1 through stage 4 chronic kidney disease, or unspecified chronic kidney disease; N18.30 Chronic kidney disease, stage 3 unspecified; K21.9 Gastro-esophageal reflux disease without esophagitis; Z98.890 Other specified postprocedural states; Z79.899 Other long term (current) drug therapy

== ENCOUNTER → 2023-09-25 | Outpatient (CLI) | payer MEDICARE ==
[2023-09-25 11:08] LABS: BASO % 0.6 % (0.0-1.0); EOS # 0.2 10*3/uL (0.0-0.4); EOS % 2.8 % (1.0-4.0); HEMATOCRIT 33.7 % (37.0-47.0); LYMPH # 1.4 10*3/uL (1.3-4.4); LYMPH % 25.5 % (27.0-41.0); MEAN CELL VOLUME 90.6 fl (81.0-99.0); MEAN PLATELET VOLUME 10.9 fl (9.6-12.3); MONO # 0.4 10*3/uL (0.1-1.0); MONO % 6.8 % (3.0-9.0); NEUT # 3.4 10*3/uL (2.3-7.9); NEUT % 63.9 % (47.0-73.0); PLATELET COUNT AUTOMATED 103 10*3/uL (130-400); RED BLOOD COUNT 3.72 10*6/uL (4.10-5.10); RED CELL DISTRI WIDTH 13.7 % (0-14.5); WHITE BLOOD COUNT 5.3 10*3/uL (4.8-10.8)
[2023-09-25 11:40] LABS: ALKALINE PHOSPHATASE 73 U/L (46-116); BUN 24 mg/dl (9-23); CHLORIDE 108 mmol/L (98-107); POTASSIUM 5.4 mmol/L (3.4-5.1); TOTAL PROTEIN 6.6 gm/dL (6.0-8.0)
[2023-09-25 11:48] LABS: SGPT/ALT < 7 U/L (5-49)
== END | disposition home or self-care (01) ==
LOC: RESCLI 00:53
PROVIDERS: Student in an Organized Health Care Education/Training Program; ATTEND Student in an Organized Health Care Education/Training Program
DX: L03.90 Cellulitis, unspecified (principal); E78.2 Mixed hyperlipidemia; H81.10 Benign paroxysmal vertigo, unspecified ear; J45.909 Unspecified asthma, uncomplicated; E55.9 Vitamin D deficiency, unspecified; I13.0 Hypertensive heart and chronic kidney disease with heart failure and stage 1 through stage 4 chronic kidney disease, or unspecified chronic kidney disease; I50.32 Chronic diastolic (congestive) heart failure; N18.30 Chronic kidney disease, stage 3 unspecified; M17.0 Bilateral primary osteoarthritis of knee; I65.23 Occlusion and stenosis of bilateral carotid arteries; K21.9 Gastro-esophageal reflux disease without esophagitis; Z88.8 Allergy status to other drugs, medicaments and biological substances; Z83.3 Family history of diabetes mellitus; Z98.890 Other specified postprocedural states; Z79.899 Other long term (current) drug therapy

== ENCOUNTER → 2023-10-05 | Outpatient (CLI) | payer MEDICARE ==
[2023-10-05 16:06] LABS: POTASSIUM 4.4 mmol/L (3.4-5.1)
== END | disposition home or self-care (01) ==
LOC: LAB 15:34
PROVIDERS: ATTEND Student in an Organized Health Care Education/Training Program
DX: I50.32 Chronic diastolic (congestive) heart failure (principal)

== ENCOUNTER → 2023-10-16 | Outpatient (CLI) | payer MEDICARE | END | disposition home or self-care (01) | LOC: RESCLI 00:56 | PROVIDERS: ATTEND Internal Medicine | DX: G62.9 Polyneuropathy, unspecified (principal); Z79.899 Other long term (current) drug therapy; Z88.8 Allergy status to other drugs, medicaments and biological substances; Z98.890 Other specified postprocedural states ==

== ENCOUNTER → 2024-08-07 | Outpatient (CLI) | payer MEDICARE ==
[~2024-08-07] MED LIST changes: +APRESOLINE25 MG PO; +COREG12.5 M1 PO; +LASIX20 MG PO; +LYRICA150 M1 PO; +OMEPRAZOLE20 M3 PO
== END | disposition home or self-care (01) ==
LOC: RAD 14:02
PROVIDERS: ATTEND Family Medicine
DX: Z13.820 Encounter for screening for osteoporosis (principal); Z78.0 Asymptomatic menopausal state; Z90.710 Acquired absence of both cervix and uterus